=== PATIENT | female | born 1970 | race Caucasian/White ===

== ENCOUNTER → 2020-12-30 | Outpatient (CLI) | payer MEDICARE, OTHER ==
[~2020-12-30] MED LIST: CYCL10TA2 PO; ESCI10TA10 PO; ESTR0.6246 PO; GABA-827 PO; HYDR-3248 PO; LOSA100T14 PO; PRAM0.255 PO
[2020-12-30 16:29] LABS: MICROSCOPIC NOT IND
[2020-12-30 16:34] LABS: BASOPHILS % (AUTO) 1 % (0-1); EOSINOPHILS % (AUTO) 1 % (1-7); LYMPHOCYTES % (AUTO) 30 % (22-44); MEAN CORPUSCULAR HEMOGLOBIN 33.3 pg (27.0-34.8); MEAN CORPUSCULAR HGB CONC 34.1 g/dL (32.4-35.8); MEAN PLATELET VOLUME 8.4 fL (7.4-10.4); MONOCYTES % (AUTO) 6 % (2-9); NEUTROPHILS % (AUTO) 62 % (42-75); PLATELET COUNT 279 x10^3/uL (130-400); RED BLOOD COUNT 3.91 x10^6/uL (3.82-5.3); RED CELL DISTRIBUTION WIDTH 13.4 % (9.6-15.2)
[2020-12-30 16:36] LABS: ALANINE AMINOTRANSFERASE 16 U/L (12-78); ALBUMIN 3.5 g/dL (3.4-5.0); ANION GAP 8 mmol/L (5-15); CALCIUM 9.2 mg/dL (8.5-10.1); CHLORIDE 105 mmol/L (98-107); CREATININE 0.66 mg/dL (0.55-1.02)
[2020-12-30 16:37] LABS: INTERNATIONAL NORMALIZED RATIO 0.86 (0.93-1.1); PROTHROMBIN TIME 9.2 Seconds (9.6-11.5)
[2020-12-30 16:39] LABS: ALKALINE PHOSPHATASE 87 U/L (45-117); BILIRUBIN,TOTAL 0.2 mg/dL (0.2-1.0); TOTAL PROTEIN 7.6 g/dL (6.4-8.2)
== END | disposition home or self-care (01) ==
LOC: STAR 15:04
PROVIDERS: ATTEND Neurological Surgery
DX: Z01.812 Encounter for preprocedural laboratory examination (principal); Z20.822 Contact with and (suspected) exposure to COVID-19; M96.0 Pseudarthrosis after fusion or arthrodesis
CPT/HCPCS: 36415; 71046; 80053; 81003; 85025; 85610; 85730; 93005; U0003; U0005

== ENCOUNTER 2021-01-06 10:36 | Inpatient (IN) | payer MEDICARE, OTHER ==
[~2021-01-06] VITALS: Ht 162.6 cm; Wt 89.2 kg
[2021-01-06] MEDS ORDERED: CHLORHEXIDINE 15 ML UDC ONE (11:12)
[2021-01-06] MEDS ORDERED: CHLORHEXIDINE 15 ML UDC PO ONE (11:30)
[2021-01-06] MEDS ORDERED: LACTATED RINGERS 1,000 ML IV SCH (11:30)
[2021-01-06] MEDS ORDERED: MIDAZOLAM 1 MG/ML, 2ML ONE (12:54)
[2021-01-06] MEDS ORDERED: FENTANYL PF 250 MCG/5ML ONE (12:54)
[2021-01-06] MEDS ORDERED: GENTAMICIN 80 MG/2 ML ONE (13:14)
[2021-01-06] MEDS ORDERED: BUPIVACAINE/PF 0.5% ONE (13:14)
[2021-01-06] MEDS ORDERED: EPINEPHRINE 1 MG/ML, 1ML ONE (13:14)
[2021-01-06] MEDS ORDERED: LORazepam 2 MG/ML, 1ML IVPush PRN (13:30)
[2021-01-06] MEDS ORDERED: PROMETHAZINE 25 MG/ML, 1ML IVPush PRN (13:30)
[2021-01-06] MEDS ORDERED: OXYcodone 5 MG/5 ML ORAL.SOL UDC PO PRN (13:30)
[2021-01-06] MEDS ORDERED: hydrALAzine 20 MG/ML, 1ML IV PRN (13:30)
[2021-01-06] MEDS ORDERED: LABETALOL 5MG/ML, 20ML IV PRN (13:30)
[2021-01-06] MEDS ORDERED: ACETAMINOPHEN 325 MG TABLET PO PRN (13:30)
[2021-01-06] MEDS ORDERED: HYDROmorphone 1 MG/ML, 1ML INJ IVPush PRN (13:30)
[2021-01-06] MEDS ORDERED: MEPERIDINE/PF 25MG/0.5ML IVPush PRN (13:30)
[2021-01-06] MEDS ORDERED: ALBUTEROL SULFATE 2.5 MG/3 ML NPPB PRN (13:30)
[2021-01-06] MEDS ORDERED: PROPOFOL 50 ML ONE ×2 (13:30→14:38)
[2021-01-06] MEDS ORDERED: METHOCARBAMOL 1,000 MG in DEXTROSE 5% 100 ML IV PRN (13:30)
[2021-01-06] MEDS ORDERED: SUCCINYLCHOLINE 20 MG/ML, 10ML ONE (13:34)
[2021-01-06] MEDS ORDERED: PHENYLEPHRINE 10 MG/ML ONE (13:34)
[2021-01-06] MEDS ORDERED: BUPIVACAINE/PF-EPI 0.5% 1:200K INFIL ONE (14:19)
[2021-01-06] MEDS ORDERED: GENTAMICIN 80 MG/2 ML IV ONE (14:19)
[2021-01-06] MEDS ORDERED: DEXAMETHASONE 4 MG/ML, 1ML ONE (14:39)
[2021-01-06] MEDS ORDERED: CEFAZOLIN 1,000 MG ONE (14:39)
[2021-01-06] MEDS ORDERED: GLYCOPYRROLATE 0.2MG/1ML, 5ML ONE (14:39)
[2021-01-06] MEDS ORDERED: PROPOFOL 10 MG/ML, 20ML ONE (14:39)
[2021-01-06] MEDS ORDERED: ROCURONIUM 10MG/ML,5ML ONE (14:39)
[2021-01-06] MEDS ORDERED: NEOSTIGMINE 1 MG/ML, 10ML ONE (14:39)
[2021-01-06] MEDS ORDERED: LIDOCAINE-MPF 2% ,5ML ONE (14:39)
[2021-01-06] MEDS ORDERED: ONDANSETRON 2MG/ML, 2ML ONE (14:39)
[2021-01-06] MEDS ORDERED: ACETAMINOPHEN 650 MG/20.3 ML UDC ONE (15:51)
[2021-01-06] MEDS ORDERED: OXYcodone 5 MG/5 ML ORAL.SOL UDC ONE (15:51)
[2021-01-06] MEDS ORDERED: FENTANYL PF 100 MCG/2ML ONE ×2 (15:51→16:13)
[2021-01-06] MEDS: FENTANYL PF 100 MCG/2ML IV PRN ×4 (15:54→16:20)
[2021-01-06] MEDS ORDERED: DIPHENHYDRAMINE 25 MG CAPSULE PO PRN (17:30)
[2021-01-06] MEDS ORDERED: DIPHENHYDRAMINE 50 MG/ML, 1ML IVPush PRN (17:30)
[2021-01-06] MEDS ORDERED: ONDANSETRON 2MG/ML, 2ML IV PRN (17:30)
[2021-01-06] MEDS ORDERED: MAGNESIUM HYDROXIDE 8%, 30ML UDC PO PRN (17:30)
[2021-01-06] MEDS ORDERED: BISACODYL 10 MG SUPP PR PRN (17:30)
[2021-01-06] MEDS ORDERED: PROMETHAZINE 25 MG/ML, 1ML IM PRN (17:30)
[2021-01-06] MEDS ORDERED: OXYcodone IR 5MG TABLET PO PRN (18:00)
[2021-01-06] MEDS ORDERED: PRAMIPEXOLE 0.5MG TABLET PO PRN (18:00)
[2021-01-06] MEDS ORDERED: CYCLOBENZAPRINE 10 MG TABLET PO PRN (18:00)
[2021-01-06] MEDS ORDERED: morphine SULFATE 10 MG/ML, 1ML IV PRN (18:00)
[2021-01-06 19:46] VITALS: BP 129/84
[2021-01-06] MEDS: OXYcodone IR 5MG TABLET PO PRN (20:22)
[2021-01-06] MEDS: GABAPENTIN 400 MG CAPSULE PO SCH (20:22)
[2021-01-06] MEDS ORDERED: ESTROGENS CONJUGATED 0.625 MG TABLET PO SCH (21:00)
[2021-01-06] MEDS ORDERED: LOSARTAN 50MG TABLET PO SCH (21:00)
[2021-01-06] MEDS: CEFAZOLIN PMX 1GM/50ML 50 ML IVPB SCH (21:57)
[2021-01-06] MEDS: NS + 20MEQ KCL 1,000 ML IV SCH (21:57)
[2021-01-06 23:10] VITALS: BP 108/82
[2021-01-07] MEDS: OXYcodone IR 5MG TABLET PO PRN ×3 (02:37→10:19)
[2021-01-07 02:45] VITALS: BP 125/77
[2021-01-07] MEDS: CEFAZOLIN PMX 1GM/50ML 50 ML IVPB SCH (06:05)
[2021-01-07] MEDS: NS + 20MEQ KCL 1,000 ML IV SCH (07:00)
[2021-01-07 07:18] VITALS: BP 112/54
[2021-01-07] MEDS: GABAPENTIN 400 MG CAPSULE PO SCH (07:23)
[2021-01-07] MEDS ORDERED: SENNA/DOCUSATE TABLET PO SCH (09:00)
[2021-01-07] MEDS ORDERED: ESCITALOPRAM 10MG TABLET PO SCH (09:00)
== END 2021-01-07 10:45 | disposition home or self-care (01) | DRG 473 ==
LOC: OUT 10:36 → 4NE 17:06 → OUT 17:07 → 4NE 17:07 → DCLOUNGE 01-07 10:40
PROVIDERS: ADMIT Neurological Surgery; ATTEND Neurological Surgery
PROC: 0RG13A0 Fusion of Cervical Vertebral Joint with Interbody Fusion Device, Anterior Approach, Anterior Column, Percutaneous Approach (ICD-10-PCS; 2021-01-06)
PROC: 4A11X4G Monitoring of Peripheral Nervous Electrical Activity, Intraoperative, External Approach (ICD-10-PCS; 2021-01-06)
PROC: 0RT30ZZ Resection of Cervical Vertebral Disc, Open Approach (ICD-10-PCS; principal; 2021-01-06 13:30)
DX: M96.0 Pseudarthrosis after fusion or arthrodesis (principal); M50.123 Cervical disc disorder at C6-C7 level with radiculopathy; I10 Essential (primary) hypertension; F32.9 Major depressive disorder, single episode, unspecified; K21.9 Gastro-esophageal reflux disease without esophagitis; G25.81 Restless legs syndrome; E66.9 Obesity, unspecified; Z79.899 Other long term (current) drug therapy; Z68.33 Body mass index [BMI] 33.0-33.9, adult; Z87.891 Personal history of nicotine dependence; Z88.8 Allergy status to other drugs, medicaments and biological substances; Y83.8 Other surgical procedures as the cause of abnormal reaction of the patient, or of later complication, without mention of misadventure at the time of the procedure; Y82.8 Other medical devices associated with adverse incidents; Z90.49 Acquired absence of other specified parts of digestive tract; Z90.710 Acquired absence of both cervix and uterus; Z91.048 Other nonmedicinal substance allergy status; Y92.9 Unspecified place or not applicable
CPT/HCPCS: 72040; 95938; 95941; C1713; C1776; G0378; J0171; J0690; J1100; J2250; J2405; J2704; J2710; J3010; J3480; J0330; J1580; J2370; J2800; J7120

== ENCOUNTER → 2021-02-23 | Outpatient (CLI) | payer MEDICARE | END | disposition home or self-care (01) | LOC: CFH 09:08 | PROVIDERS: ATTEND Nurse Practitioner | DX: M50.33 Other cervical disc degeneration, cervicothoracic region (principal); M47.813 Spondylosis without myelopathy or radiculopathy, cervicothoracic region | CPT/HCPCS: 72125 ==